=== PATIENT | female | born 1955 | race Caucasian/White ===

== ENCOUNTER 2020-02-11 14:08 | Observation (INO) | payer OTHER ==
--- OUTSIDE RECORDS SUMMARY | 2020-02-11 14:11 | XMS REPORT | Clinical Summary ---
:1955 Author Organization [facility] Address [address] [place] [address] Care Team Providers Name Role Phone Asked, No Pcp Primary Care Provider Unavailable Allergies No Known Allergies Medications Medication Sig Dispensed Refills Start Date End Date Status pregabalin (LYRICA) 75 Take 75 mg by 0 Active MG capsule mouth 2 (two) times a day. prn rosuvastatin (CRESTOR) Take 10 mg by 0 Active 10 MG tablet mouth daily. lisinopril-hydrochlorot Take 1 tablet by 0 Active hiazide mouth daily. (PRINZIDE,ZESTORETIC) 20-25 mg per tablet metFORMIN (GLUCOPHAGE) Take 1,000 mg by 0 Active 1000 MG tablet mouth 2 (two) times a day with meals. apixaban (ELIQUIS) 5 mg Take 5 mg by 0 Active tablet mouth 2 (two) times a day. amIODarone (PACERONE) Take 200 mg by 0 Active 200 MG tablet mouth 2 (two) times a day. metoprolol succinate XL Take 100 mg by 0 Active (TOPROL-XL) 100 MG 24 mouth 2 (two) hr tablet times a day. Active Problems Problem Noted Date Atrial fibrillation 03/27/2016 Hypertension 03/27/2016 Obstructive sleep apnea 03/27/2016 Hyperlipidemia 03/27/2016 Obesity, Class III, BMI 40-49.9 (morbid obesity) 03/27 Family History Medical History Relation Name Comments Heart disease Father Lung cancer Father Breast cancer Mother Heart disease Mother Relation Name Status Comments Father Mother Social History Tobacco Use Types Packs/Day Years Used Date Former Smoker 2 Quit: 03/27/19 79 Alcohol Use Drinks/Week oz/Week Comments No Sex Assigned at Date Recorded Not on file Job Start Date Occupation Industry Not on file Not on file Not on file Travel History Travel Start Travel End No recent travel history available. Last Filed Vital Signs Not on file Plan of Treatment Not on file Results Not on fileafter 02/10/2019 Advance Directives For more information, please contact: [phone] Type Date Recorded Patient Toggle Press Folder And Feeder Explanati on Advance Directives, Living Will and Medical Power of Raw Shellfish Preparer
[2020-02-11 14:57] LABS: Absolute Lymphocytes (CBC) 2.5 K/uL (0.7-4.9); Hematocrit 47.3 % (36.0-45.0); Lymphocytes % 26.3 % (15.3-44.8); MPV 7.6 fL (7.6-11.3); RBC Red Blood Cell Count 5.27 M/uL (3.86-4.86)
--- NOTE | 2020-02-11 15:10 | RAD REPORT ---
EXAM DESCRIPTION: RAD - Chest Single View - 02/11/2020 2:48 pm CLINICAL HISTORY: PALPITATIONS COMPARISON: January 2016 TECHNIQUE: AP portable chest image was obtained 02/11/2020 2:48 pm . FINDINGS: Lung volumes are low. No peripheral mass or consolidation. No significant failure or volum e overload. Lung markings are increased by the low lung volumes. Heart and vasculature are normal. No measurable pleural effusion and no pneumothorax. No acute bony abnormality seen. No acute aortic fin dings suspected. IMPRESSION: No focal lung parenchymal process.
[2020-02-11 15:26] LABS: ALT/SGPT 18 U/L (12-78); AST/SGOT 15 U/L (15-37); Albumin 3.4 g/dL (3.4-5.0); Alkaline Phosphatase 99 U/L (45-117); BUN Blood Urea Nitrogen 11 mg/dL (7-18); Bicarbonate 27 mmol/L (21-32); Bilirubin Direct 0.1 mg/dL (0-0.2); Bilirubin Total 0.4 mg/dL (0.2-1.0); Glucose Level 194 mg/dL (74-106); Magnesium 1.8 mg/dL (1.8-2.4); NT PRO-BNP 1562 pg/mL (<125); Potassium 3.4 mmol/L (3.5-5.1); Protein, Total 7.5 g/dL (6.4-8.2); Sodium Level 138 mmol/L (136-145); Troponin (Emerg Dept Use Only) < 0.02 ng/mL (0.0-0.045)
[2020-02-11] MEDS ORDERED: METOPROLOL TARTRATE 5 MG/5 ML INJ IV ONE ×3 (16:01→18:54)
[2020-02-11] MEDS ORDERED: NA CHLORIDE 0.9% 1,000 ML ONE (16:01)
[2020-02-11] MEDS ORDERED: MAGNESIUM SULFATE 1 gm IVPB 1 GM/100 ML BAG IV ONE (16:20)
[2020-02-11] MEDS ORDERED: POTASSIUM 25 MEQ EFFERV TAB ONE (16:20)
[2020-02-11] MEDS ORDERED: METOPROLOL TAR 50 MG TAB ONE (16:32)
[2020-02-11 16:44] LABS: Urine Blood 1+ (NEG); Urine Glucose NEGATIVE (NEG); Urine Protein NEGATIVE (NEG)
--- NOTE | 2020-02-11 17:09 | ER ---
Nurse's Notes [facility] Name: Sarita Kaur Age: 64 yrs Sex: Female : 1955 Arrival Date: 02/11/2020 Time: 14:09 Bed 8 Private MD: Shira Marie K Diagnosis: Atrial fibrillation and flutter-rvr;Essential (primary) hypertension;Type 2 diabetes mellitus;Hypokalemia Presentation: 02/10 14:28 Chief complaint: Patient states: Missed dose of metoprolol, started having palpitations ll1 and generalized weakness Lester night. Continues today, unable to get in to see MD. Coronavirus screen: Proceed with normal triage. Patient denies a cough. Patient denies shortness of breath or difficulty breathing. Patient denies measured and/or subjective temperature greater than 100.4F prior to today's visit. Patient denies travel on a cruise ship or to a country the [facility] currently lists as an affected area. Patient denies contact with known and/or suspected case of COVID-19. Ebola Screen: Patient denies travel to an Ebola-affected area in the 21 days before illness onset. Initial Sepsis Screen: Does the patient meet any 2 criteria? HR > 90 bpm. No. Patient's initial sepsis screen is negative. Does the patient have a suspected source of infection? No. Patient's initial sepsis screen is negative. Risk Assessment: Do you want to hurt yourself or someone else? Patient reports no desire to harm self or others. Onset of symptoms was February 10, 2020. 14:28 Method Of Arrival: Ambulatory ll1 14:28 Acuity: H[place] 3 ll1 Historical: - Allergies: 14:36 No Known Allergies; ll1 - Home Meds: 18:53 Lyrica 150 mg Oral [Active]; lisinopril-hydrochlorothiazide 20-25 mg oral tab 1 tab jl7 once daily [Active]; rosuvastatin 10 mg oral tab 1 tab once daily [Active]; Eliquis 5 mg oral tab [Active]; omeprazole 20 mg Oral cpDR [Active]; metformin 1,000 mg Oral tab [Active]; metoprolol succinate 100 mg oral Tb24 1 tab once daily [Active]; - PMHx: 14:36 Atrial Fib; ablation; ll1 14:36 Diabetes - NIDDM; Depression; ll1 - PSHx: 14:36 cervical ablation; Cholecystectomy; Appendectomy; Tubal ligation; ll1 - Immunization history:: Adult Immunizations unknown. - Social history:: Smoking status: Patient denies any tobacco usage or history of. Patient/guardian denies using alcohol, street drugs, tobacco products. - Family history:: not pertinent. Screenin:55 Abuse screen: Denies threats or abuse. Denies injuries from another. Nutritional jl7 screening: No deficits noted. Tuberculosis screening: No symptoms or risk factors identified. Fall Risk IV access (20 points). Total Bernabe Fall Scale indicates No Risk (0-24 pts). Assessment: 14:30 General: Appears in no apparent distress. uncomfortable, Behavior is calm, cooperative, jl7 appropriate for age. Pain: Denies pain. Neuro: Level of Consciousness is awake, alert, obeys commands, Oriented to person, place, time, situation. Cardiovascular: Reports palpitations, Patient's skin is warm and dry. Rhythm is atrial fibrillation. Respiratory: Airway is patent Respiratory effort is even, unlabored, Respiratory pattern is regular, symmetrical. Derm: Skin is pink, warm \T\ dry. 15:30 Reassessment: Patient appears in no apparent distress at this time. No changes from jl7 previously documented assessment. Patient and/or family updated on plan of care and expected duration. Pain level reassessed. Patient is alert, oriented x 3, equal unlabored respirations, skin warm/dry/pink. 16:30 Reassessment: Patient appears in no apparent distress at this time. Patient and/or jl7 family updated on plan of care and expected duration. Pain level reassessed. Patient is alert, oriented x 3, equal unlabored respirations, skin warm/dry/pink. 17:30 Reassessment: Patient appears in no apparent distress at this time. No changes from jl7 previously documented assessment. Patient and/or family updated on plan of care and expected duration. Pain level reassessed. Patient is alert, oriented x 3, equal unlabored respirations, skin warm/dry/pink. 18:30 Reassessment: Patient appears in no apparent distress at this time. No changes from jl7 previously documented assessment. Patient and/or family updated on plan of care and expected duration. Pain level reassessed. Patient is alert, oriented x 3, equal unlabored respirations, skin warm/dry/pink. 19:43 Reassessment: Patient appears in no apparent distress at this time. Patient is alert, lp1 oriented x 3, equal unlabored respirations, skin warm/dry/pink. Patient aware of pending admission to floor. Vital Signs: 14:28 BP 156 / 110; Pulse 140; Resp 19; Temp 98.5; Pulse Ox 100% ; Pain 0/10; ll1 14:55 BP 135 / 86; Pulse 124; Resp 19 S; Pulse Ox 96% on R/A; Pain 0/10; jl7 16:00 BP 130 / 106; Pulse 126; Resp 19; Pulse Ox 97% ; jl7 16:30 BP 130 / 107; Pulse 106; Resp 17; Pulse Ox 100% ; jl7 17:24 BP 148 / 116; Pulse 111; Resp 14; Pulse Ox 99% ; jl7 19:43 BP 154 / 107; Pulse 90; Resp 20; Temp 97.3; Pulse Ox 98% on R/A; lp1 19:53 BP 146 / 88; Pulse 89; Resp 20; Pulse Ox 97% on R/A; lp1 ED Course: 14:09 Patient arrived in ED. am2 14:10 Shira Marie MD is Private Physician. am2 14:16 Florin Melvin MD is Attending Physician. julissa 14:28 Demetrius Rene, SUHAIL is Primary Nurse. jl7 14:31 Triage completed. ll1 14:37 Arm band placed on Patient placed in an exam room, on a stretcher. ll1 14:49 XRAY Chest (1 view) In Process Unspecified. EDMS 14:53 Patient has correct armband on for positive identification. Placed in gown. Bed in low mh5 position. Call light in reach. Side rails up X 1. Warm blanket given. night monitor on. Pulse ox on. NIBP on. 14:53 EKG done, by ED staff, reviewed by Florin Melvin MD. 5 14:55 Initial lab(s) drawn, by ok, sent to lab. Inserted saline lock: 20 gauge in right jl7 forearm, using aseptic technique. Blood collected. 15:34 Urine collected: clean catch specimen, clear. 5 17:07 Omero Denson MD is Hospitalizing Provider. julissa 18:50 No provider procedures requiring assistance completed. Patient admitted, IV remains in jl7 place. intact, No redness/swelling at site. Administered Medications: 15:50 Drug: NS 0.9% 1000 ml Route: IV; Rate: 125 ml/hr; Site: right forearm; jl7 19:13 Follow up: Response: No adverse reaction; IV Status: Infusion continued upon admission jl7 15:53 Drug: Lopressor 5 mg Route: IVP; Site: right forearm; jl7 16:00 Follow up: Response: No adverse reaction; Cardiac rhythm is unchanged jl7 15:59 Drug: Lopressor 2.5 mg Route: IVP; Site: right forearm; jl7 16:10 Follow up: Response: No adverse reaction; Cardiac rhythm is unchanged jl7 16:10 Drug: Lopressor 2.5 mg Route: IVP; Site: right forearm; jl7 16:20 Follow up: Response: No adverse reaction; Cardiac rhythm is unchanged jl7 16:10 Drug: NS 0.9% 500 ml Route: IV; Rate: bolus; Site: right forearm; jl7 17:00 Follow up: Response: No adverse reaction; IV Status: Completed infusion; IV Intake: jl7 500ml 16:21 Drug: Potassium Effervescent Tablet 50 mEq Route: PO; jl7 19:15 Follow up: Response: No adverse reaction jl7 16:22 Drug: Magnesium Sulfate 1 grams Route: IVPB; Infused Over: 1 hrs; Site: right forearm; jl7 17:22 Follow up: Response: No adverse reaction; IV Status: Completed infusion jl7 16:29 Drug: Lopressor (metoprolol TARTRATE) 50 mg Route: PO; jl7 19:17 Follow up: Response: No adverse reaction jl7 16:29 Drug: Lopressor 5 mg Route: IVP; Site: right forearm; jl7 16:40 Follow up: Response: No adverse reaction; Cardiac rhythm is unchanged jl7 17:19 Drug: Digoxin 0.5 mg Route: IVP; Site: right forearm; jl7 19:17 Follow up: Response: No adverse reaction jl7 18:50 Drug: Lopressor 5 mg Route: IVP; Site: right forearm; jl7 19:17 Follow up: Response: No adverse reaction 7 19:45 Drug: Lisinopril 20 mg Route: PO; lp1 20:02 Follow up: Response: No adverse reaction lp1 Intake: 17:00 IV: 500ml; Total: 500ml. jl7 Outcome: 17:08 Decision to Hospitalize by Provider. julissa 19:43 Condition: stable lp1 19:43 Instructed on the need for admit. 20:02 Admitted to Med/surg via wheelchair, room 216, with chart, Report called to SUHAIL Levy lp1 20:21 Patient left the ED. jb4 Signatures: Dispatcher [employer] EDFlorin Smith MD MD cha Pena, Laura, RN RN lp1 Mono Cruz RN RN jb4 Marilyn Tejada Demetrius Shepherd RN RN jl7 Sulma Vasquez Lynsay RN RN ll1 Corrections: (The following items were deleted from the chart) 19:16 17:00 Response: No adverse reaction; IV Intake: 500ml jl7 jl7
--- NOTE | 2020-02-11 17:09 | EDPHYS ---
Physician Documentation [facility] Name: Sarita Kaur Age: 64 yrs Sex: Female : 1955 Arrival Date: 02/11/2020 Time: 14:09 Bed 8 Private MD: Shira Marie K ED Physician Florin Melvin HPI: 02/10 15:39 This 64 yrs old Female presents to ER via Ambulatory with complaints of julissa possible afib. 15:39 The patient presents with a history of irregular heart beat, heart racing. Context: The julissa symptoms occur at rest. Onset: The symptoms/episode began/occurred 1 day(s) ago. Duration: The patient or guardian reports a single episode, that is still ongoing. Modifying factors: The symptoms are aggravated by nothing. The symptoms are alleviated by nothing. Associated signs and symptoms: The patient has no apparent associated signs or symptoms. Severity of symptoms: At their worst the symptoms were mild in the emergency department the symptoms are unchanged. The patient has not experienced similar symptoms in the past. Historical: - Allergies: 14:36 No Known Allergies; ll1 - Home Meds: 18:53 Lyrica 150 mg Oral [Active]; lisinopril-hydrochlorothiazide 20-25 mg oral tab 1 tab jl7 once daily [Active]; rosuvastatin 10 mg oral tab 1 tab once daily [Active]; Eliquis 5 mg oral tab [Active]; omeprazole 20 mg Oral cpDR [Active]; metformin 1,000 mg Oral tab [Active]; metoprolol succinate 100 mg oral Tb24 1 tab once daily [Active]; - PMHx: 14:36 Atrial Fib; ablation; ll1 14:36 Diabetes - NIDDM; Depression; ll1 - PSHx: 14:36 cervical ablation; Cholecystectomy; Appendectomy; Tubal ligation; ll1 - Immunization history:: Adult Immunizations unknown. - Social history:: Smoking status: Patient denies any tobacco usage or history of. Patient/guardian denies using alcohol, street drugs, tobacco products. - Family history:: not pertinent. ROS: 15:39 Constitutional: Negative for fever, chills, and weight loss, Eyes: Negative for injury, julissa pain, redness, and discharge, ENT: Negative for injury, pain, and discharge, Neck: Negative for injury, pain, and swelling, Respiratory: Negative for shortness of breath, cough, wheezing, and pleuritic chest pain, Abdomen/GI: Negative for abdominal pain, nausea, vomiting, diarrhea, and constipation, Back: Negative for injury and pain, : Negative for injury, bleeding, discharge, and swelling, MS/Extremity: Negative for injury and deformity, Skin: Negative for injury, rash, and discoloration, Neuro: Negative for headache, weakness, numbness, tingling, and seizure, Psych: Negative for depression, anxiety, suicide ideation, homicidal ideation, and hallucinations, Allergy/Immunology: Negative for hives, rash, and allergies, Endocrine: Negative for neck swelling, polydipsia, polyuria, polyphagia, and marked weight changes, Hematologic/Lymphatic: Negative for swollen nodes, abnormal bleeding, and unusual bruising. 15:39 Cardiovascular: Positive for palpitations. Exam: 15:39 Constitutional: This is a well developed, well nourished patient who is awake, alert, julissa and in no acute distress. Head/Face: Normocephalic, atraumatic. Eyes: Pupils equal round and reactive to light, extra-ocular motions intact. Lids and lashes normal. Conjunctiva and sclera are non-icteric and not injected. Cornea within normal limits. Periorbital areas with no swelling, redness, or edema. ENT: Nares patent. No nasal discharge, no septal abnormalities noted. Tympanic membranes are normal and external auditory canals are clear. Oropharynx with no redness, swelling, or masses, exudates, or evidence of obstruction, uvula midline. Mucous membranes moist. Neck: Trachea midline, no thyromegaly or masses palpated, and no cervical lymphadenopathy. Supple, full range of motion without nuchal rigidity, or vertebral point tenderness. No Meningismus. Chest/axilla: Normal chest wall appearance and motion. Nontender with no deformity. No lesions are appreciated. Respiratory: Lungs have equal breath sounds bilaterally, clear to auscultation and percussion. No rales, rhonchi or wheezes noted. No increased work of breathing, no retractions or nasal flaring. Abdomen/GI: Soft, non-tender, with normal bowel sounds. No distension or tympany. No guarding or rebound. No evidence of tenderness throughout. Back: No spinal tenderness. No costovertebral tenderness. Full range of motion. Female : Normal external genitalia. Skin: Warm, dry with normal turgor. Normal color with no rashes, no lesions, and no evidence of cellulitis. MS/ Extremity: Pulses equal, no cyanosis. Neurovascular intact. Full, normal range of motion. Neuro: Awake and alert, GCS 15, oriented to person, place, time, and situation. Cranial nerves II-XII grossly intact. Motor strength 5/5 in all extremities. Sensory grossly intact. Cerebellar exam normal. Normal gait. Psych: Awake, alert, with orientation to person, place and time. Behavior, mood, and affect are within normal limits. 15:39 Cardiovascular: Rate: tachycardic, Rhythm: irregularly irregular, Pulses: Pulses are 4+ in bilateral radial, brachial, femoral, popliteal, posterior tibial and and dorsalis pedis arteries.. Heart sounds: normal, Edema: is not appreciated, JVD: is not appreciated. 15:42 ECG was reviewed by the Attending Physician. [facility] Vital Signs: 14:28 BP 156 / 110; Pulse 140; Resp 19; Temp 98.5; Pulse Ox 100% ; Pain 0/10; ll1 14:55 BP 135 / 86; Pulse 124; Resp 19 S; Pulse Ox 96% on R/A; Pain 0/10; jl7 16:00 BP 130 / 106; Pulse 126; Resp 19; Pulse Ox 97% ; jl7 16:30 BP 130 / 107; Pulse 106; Resp 17; Pulse Ox 100% ; jl7 17:24 BP 148 / 116; Pulse 111; Resp 14; Pulse Ox 99% ; jl7 19:43 BP 154 / 107; Pulse 90; Resp 20; Temp 97.3; Pulse Ox 98% on R/A; lp1 19:53 BP 146 / 88; Pulse 89; Resp 20; Pulse Ox 97% on R/A; lp1 MDM: 14:16 Patient medically screened. [facility] 15:41 Data reviewed: vital signs, nurses notes, lab test result(s), EKG, radiologic studies, julissa plain films. 17:08 Differential diagnosis: arrythmia, dehydration. Data interpreted: awake overnight monitor: rate julissa is 122 beats/min, rhythm is atrial fibrillation. Test interpretation: by ED physician or midlevel provider: ECG, plain radiologic studies. Counseling: I had a detailed discussion with the patient and/or guardian regarding: the historical points, exam findings, and any diagnostic results supporting the discharge/admit diagnosis, the presence of at least one elevated blood pressure reading (>120/80) during this emergency department visit, lab results, radiology results, the need for further work-up and treatment in the hospital. Physician consultation: Thomas Gill MD and will see patient in the hospital. 17:21 ED course: dr sheehan agrees with plan, will admit to obs, dr gill aware and will julissa consult. 02/10 14:23 Order name: Basic Metabolic Panel; Complete Time: 15:37 [facility] 02/10 14:23 Order name: CBC with Diff; Complete Time: 15:37 [facility] 02/10 14:23 Order name: LFT's; Complete Time: 15:37 [facility] 02/10 14:23 Order name: Magnesium; Complete Time: 15:37 [facility] 02/10 14:23 Order name: NT PRO-BNP; Complete Time: 15:37 [facility] 02/10 14:23 Order name: Troponin (emerg Dept Use Only); Complete Time: 15:37 [facility] 02/10 14:23 Order name: XRAY Chest (1 view); Complete Time: 15:37 [facility] 02/10 14:23 Order name: TSH; Complete Time: 15:37 [facility] 02/10 15:38 Order name: Urine Dipstick--Ancillary (enter results); Complete Time: 17:07 02/10 14:23 Order name: EKG; Complete Time: 14:24 [facility] 02/10 14:23 Order name: Cardiac monitoring; Complete Time: 14:53 [facility] 02/10 14:23 Order name: EKG - Nurse/Tech; Complete Time: 14:53 [facility] 02/10 14:23 Order name: IV Saline Lock; Complete Time: 14:53 [facility] 02/10 14:23 Order name: Labs collected and sent; Complete Time: 14:53 [facility] 02/10 14:23 Order name: O2 Per Protocol; Complete Time: 14:53 [facility] 02/10 14:23 Order name: O2 Sat Monitoring; Complete Time: 14:53 [facility] 02/10 14:23 Order name: Urine Dipstick-Ancillary (obtain specimen); Complete Time: 15:34 [facility] 02/10 17:14 Order name: CONS Physician Consult EDMS EC:42 Rate is 120 beats/min. Rhythm is irregularly irregular. QRS Halma is Normal. IN interval julissa is normal. QRS interval is normal. QT interval is normal. No Q waves. T waves are Normal. No ST changes noted. Clinical impression: Atrial Fibrillation and No evidence of ischemia. Interpreted by me. Reviewed by me. Administered Medications: 15:50 Drug: NS 0.9% 1000 ml Route: IV; Rate: 125 ml/hr; Site: right forearm; jl7 19:13 Follow up: Response: No adverse reaction; IV Status: Infusion continued upon admission jl7 15:53 Drug: Lopressor 5 mg Route: IVP; Site: right forearm; jl7 16:00 Follow up: Response: No adverse reaction; Cardiac rhythm is unchanged jl7 15:59 Drug: Lopressor 2.5 mg Route: IVP; Site: right forearm; jl7 16:10 Follow up: Response: No adverse reaction; Cardiac rhythm is unchanged jl7 16:10 Drug: Lopressor 2.5 mg Route: IVP; Site: right forearm; jl7 16:20 Follow up: Response: No adverse reaction; Cardiac rhythm is unchanged jl7 16:10 Drug: NS 0.9% 500 ml Route: IV; Rate: bolus; Site: right forearm; jl7 17:00 Follow up: Response: No adverse reaction; IV Status: Completed infusion; IV Intake: jl7 500ml 16:21 Drug: Potassium Effervescent Tablet 50 mEq Route: PO; jl7 19:15 Follow up: Response: No adverse reaction jl7 16:22 Drug: Magnesium Sulfate 1 grams Route: IVPB; Infused Over: 1 hrs; Site: right forearm; jl7 17:22 Follow up: Response: No adverse reaction; IV Status: Completed infusion jl7 16:29 Drug: Lopressor (metoprolol TARTRATE) 50 mg Route: PO; jl7 19:17 Follow up: Response: No adverse reaction jl7 16:29 Drug: Lopressor 5 mg Route: IVP; Site: right forearm; jl7 16:40 Follow up: Response: No adverse reaction; Cardiac rhythm is unchanged jl7 17:19 Drug: Digoxin 0.5 mg Route: IVP; Site: right forearm; jl7 19:17 Follow up: Response: No adverse reaction jl7 18:50 Drug: Lopressor 5 mg Route: IVP; Site: right forearm; jl7 19:17 Follow up: Response: No adverse reaction jl7 19:45 Drug: Lisinopril 20 mg Route: PO; lp1 20:02 Follow up: Response: No adverse reaction lp1 Disposition: 02/11/20 17:08 Hospitalization ordered by Omero Sheehan for Observation. Preliminary diagnosis are Atrial fibrillation and flutter - rvr, Essential (primary) hypertension, Type 2 diabetes mellitus, Hypokalemia. - Bed requested for Telemetry/MedSurg (observation). - Status is Observation. jb4 - Condition is Fair. - Problem is new. - Symptoms have improved. Critical care time excluding procedures: 17:08 Critical care time: Bedside Care: 25 minutes, Consultation: 10 minutes. Total time: 35 julissa minutes Signatures: Dispatcher [employer] EDLynsey Pruett RN Florin Mims MD MD cha Pena, Laura RN RN lp1 Mono Cruz RN RN jb4 Demetrius Rene RN SUHAIL jl7 Noemy Spencer RN RN ll1 Corrections: (The following items were deleted from the chart) 17:10 17:08 Hospitalization Ordered by Omero Sheehan MD for Observation. Preliminary diagnosis julissa is Atrial fibrillation and flutter - rvr; Essential (primary) hypertension; Type 2 diabetes mellitus. Bed requested for Telemetry/MedSurg (observation). Status is Observation. Condition is Fair. Problem is new. Symptoms have improved. julissa 17:20 17:10 02/11/2020 17:08 Hospitalization Ordered by Omero Sheehan MD for Observation. julissa Preliminary diagnosis is Atrial fibrillation and flutter - rvr; Essential (primary) hypertension; Type 2 diabetes mellitus; Hyperkalemia. Bed requested for Telemetry/MedSurg (observation). Status is Observation. Condition is Fair. Problem is new. Symptoms have improved. julissa 18:44 17:20 02/11/2020 17:08 Hospitalization Ordered by Omero Sheehan MD for Observation. dw Preliminary diagnosis is Atrial fibrillation and flutter - rvr; Essential (primary) hypertension; Type 2 diabetes mellitus; Hypokalemia. Bed requested for Telemetry/MedSurg (observation). Status is Observation. Condition is Fair. Problem is new. Symptoms have improved. julissa 18:46 18:44 02/11/2020 17:08 Hospitalization Ordered by Omero Sheehan MD for Observation. dw Preliminary diagnosis is Atrial fibrillation and flutter - rvr; Essential (primary) hypertension; Type 2 diabetes mellitus; Hypokalemia. Bed requested for Telemetry/MedSurg (observation). Status is Observation. Condition is Fair. Problem is new. Symptoms have improved. dw 20:21 18:46 02/11/2020 17:08 Hospitalization Ordered by Omeor Sheehan MD for Observation. jb4 Preliminary diagnosis is Atrial fibrillation and flutter - rvr; Essential (primary) hypertension; Type 2 diabetes mellitus; Hypokalemia. Bed requested for Telemetry/MedSurg (observation). Status is Observation. Condition is Fair. Problem is new. Symptoms have improved. dw
[2020-02-11] MEDS ORDERED: DIGOXIN 0.25 MG/ML AMP ONE (17:22)
[2020-02-11] MEDS ORDERED: lisinopriL 20 MG TAB ONE (19:52)
[2020-02-11] MEDS ORDERED: ONDANSETRON 4 MG/2 ML VIAL IV PRN (20:49)
[2020-02-11] MEDS ORDERED: ACETAMINOPHEN 500 MG TAB PO PRN (20:49)
[2020-02-11] MEDS ORDERED: GLUCAGON 1 MG/VIAL IM PRN (20:49)
[2020-02-11] MEDS ORDERED: MORPHINE 4 MG/ML SYR IV PRN (20:49)
[2020-02-11] MEDS ORDERED: D50W 25 GM/50 ML SYRINGE/VIAL IV PRN (20:49)
[2020-02-11] MEDS: INSULIN -REGULAR HUMAN 50 UNIT/0.5 ML ML SQ SCH (21:00)
[2020-02-11] MEDS ORDERED: METOPROLOL TAR 50 MG TAB PO SCH (21:00)
[2020-02-11 21:09] VITALS: BMI 44.6
[2020-02-11] MEDS: POTASSIUM 25 MEQ EFFERV TAB PO SCH (22:13)
[2020-02-11] MEDS: DIGOXIN 0.25 MG/ML AMP IV SCH (22:15)
[2020-02-11] MEDS ORDERED: ACETAMINOPHEN 325 MG TABLET PO PRN (23:00)
[2020-02-12] MEDS: DIGOXIN 0.25 MG/ML AMP IV SCH (02:49)
[2020-02-12 04:27] LABS: Absolute Lymphocytes (CBC) 2.9 K/uL (0.7-4.9); Basophils % 0.6 % (0-1.3); Lymphocytes % 28.8 % (15.3-44.8); MPV 7.8 fL (7.6-11.3); RBC Red Blood Cell Count 4.84 M/uL (3.86-4.86)
[2020-02-12 04:42] LABS: Potassium 4.3 mmol/L (3.5-5.1)
[2020-02-12 04:44] VITALS: TEMP 97.5; O2SAT 99
[2020-02-12] MEDS: INSULIN -REGULAR HUMAN 50 UNIT/0.5 ML ML SQ SCH (07:30)
--- NOTE | 2020-02-12 08:40 | EKG ---
Test Date: 2020-02-11 Test Time: 14:39:47 Dry Ice Maker: KIESHA MEASUREMENT RESULTS: Intervals: Rate: 120 NH: QRSD: 86 QT: 342 QTc: 483 [place]: P: NH: QRS: 62 T: 34 INTERPRETIVE STATEMENTS: Atrial flutter with variable AV block Low voltage QRS Nonspecific ST and T wave abnormality Abnormal ECG Compared to ECG 02/13/2016 08:06:38 Low QRS voltage now present ST (T wave) deviation still present Electronically Signed On 02-12-20 08:39:07 CDT by Thomas Gill
[2020-02-12] MEDS: POTASSIUM 25 MEQ EFFERV TAB PO SCH (08:41)
[2020-02-12 08:43] VITALS: BP 136/90
[2020-02-12] MEDS ORDERED: LISINOPRIL PO SCH (09:00)
[2020-02-12] MEDS ORDERED: HOME MED 1 EA UNK (Apixaban [Eliquis] 5 MG) PO SCH (09:00)
[2020-02-12] MEDS ORDERED: ROSUVASTATIN 10 MG PO SCH (09:00)
[2020-02-12] MEDS ORDERED: DIGOXIN 0.25 MG TABLET PO SCH (09:00)
[2020-02-12] MEDS ORDERED: lisinopriL 20 MG TAB PO SCH (09:00)
[2020-02-12] MEDS ORDERED: HYDROCHLOROTHIAZIDE PO SCH (09:00)
--- NOTE | 2020-02-12 09:37 | P.SSS ---
Patient History Date of Service: 02/12/20 Reason for admission: PALPITATIONS History of Present Illness: MS. MASCORRO IS A DIABETIC WHO IS VERY WELL CONTROLLED FOR A FIB. SHE WAS NOT SURE IF SHE FORGOT METOPROLOL ON THURSDAY AND DID NOT TAKE IT. SHE WENT INTO A FIB THAT NIGHT AND CAME TO ER ON THURSDAY. SHE IS NOW BACK IN [place]. Allergies No Known Allergies Allergy (Verified 02/11/20 21:09) Home Medications: Apixaban [Eliquis] 5 mg PO BID 02/11/20 Lisinopril/Hydrochlorothiazide [Lisinopril-Hctz 20-25 mg Tab] 1 tab PO DAILY 02/11/20 Metformin ER [Glucophage ER*] 1,000 mg PO BID 02/11/20 Metoprolol Succinate [Toprol Xl] 100 [place] PO 62902/11/20 Omeprazole 20 [place] [address]02/11/20 Pregabalin [Lyrica] 150 mg PO BEDTIME 02/11/20 Rosuvastatin [Crestor*] 10 mg PO DAILY 02/11/20 - Past Medical/Surgical History Has patient received pneumonia vaccine in the past: No Diabetic: Yes -: HTN -: Afib -: diabetes -: high cholesterol -: neuropathy -: appendectomy -: cholecystectomy -: bilateral knee Sx -: cyst removed out of R hand -: cervical oblation - Family History Mother -: Heart disease, Hypertension Notes: Afib - Social History Smoking Status: Never smoker Alcohol use: No CD- Drugs: No Caffeine use: Yes Place of Residence: Home Review of Systems 10-point ROS is otherwise unremarkable Physical Examination - Vital Signs Temperature: 97.5 F Blood Pressure: 136/90 Pulse: 71 Respirations: 18 Pulse Ox (%): 99 - Physical Exam General: Alert, In no apparent distress HEENT: Atraumatic, PERRLA, Mucous membr. moist/pink, EOMI, Sclerae nonicteric Neck: Supple, 2+ carotid pulse no bruit, No LAD, Without JVD or thyroid abnormality Respiratory: Clear to auscultation bilaterally, Normal air movement Cardiovascular: Regular rate/rhythm, Normal S1 S2 Gastrointestinal: Normal bowel sounds, No tenderness Musculoskeletal: No tenderness Integumentary: No rashes Neurological: Normal gait, Normal speech, Normal strength at 5/5 x4 extr, Normal tone, Normal affect Lymphatics: No axilla or inguinal lymphadenopathy - Studies Laboratory Data (last 24 hrs) 02/11/20 14:51: WBC 9.4, Hgb 15.7 H, Hct 47.3 H, Plt Count 241 02/11/20 14:51: Sodium 138, Potassium 3.4 L, BUN 11, Creatinine 0.88, Glucose 194 H, Magnesium 1.8, Total Bilirubin 0.4, AST 15, ALT 18, Alkaline Phosphatase 99 - Diagnosis (Problem(s)) (1) Atrial fibrillation Onset Date: 01/10/16 Current Visit: No Status: Chronic Plan: SHE NOW KNOWS THAT IF SHE IS NOT SURE AND IF BP IS MORE THAN 120 SYSTOLIC SHE CAN TAKE HALF OF METOPROLOL. IF SHE FORGOT AND KNEW ABOUT IT SHE CAN TAKE FULL METOPRLOL. SHE HAD THIS SHE MISSED HER DOSE OF METOPROLOL. Qualifiers: Atrial fibrillation type: paroxysmal Qualified Code(s): I48.0 - Paroxysmal atrial fibrillation - Disposition Disposition: ROUTINE DISCHARGE Condition: FAIR
--- NOTE | 2020-02-12 16:41 | CON ---
Date of Consultation: 02/12/[address] Denson on 02/11/2020. I saw the patient on 02/12/2020. Reason For Consultation: Atrial fibrillation. History Of Present Illness: Ms. Kaur is a 64-year-old white woman. She is known to have atrial fibrillation. She had an ablation by Dr. Camargo at [facility] 7 years ago. She has a history of depression, diabetes, hypertension, dyslipidemia, neuropathy, and gastroesophageal reflux disease. Apparently yesterday, she missed 1 of her beta-chavez dose, which is 100 mg of metoprolol and came in with rapid ventricular response, atrial fibrillation. She was given IV beta blockers x2. She wa s given metoprolol p.o. and digoxin, and overnight, she converted back to sinus rhythm. She did have palpitations and some chest pain with her atrial fibrillation, but denied any PND, orthopnea, pedal edema, or syncope. Had denied any fever or chills or cough. Past Medical History: As stated above. Allergies: NONE. Review of Systems: Negative. Social History: Negative. Family History: Negative. Medications: At home include metoprolol 100 mg daily, Eliquis, lisinopril with hydrochlorothiazide, metformin, omeprazole, Lyrica, and Crestor. Physical Examination: Vital Signs: Stable. She was in sinus rhythm this morning. Afebrile. HEENT: Negative. Neck: Supple without any bruit, lymphadenopathy, JVD, or thyromegaly. Chest: Clear to auscultation and percussion. Cardiac: Revealed irregular rhythm and rate. No murmurs, gallops, or rubs. Abdomen: Benign. Extremities: Revealed no clubbing, cyanosis, or edema. Diagnostic Data: Chest x-ray is negative. Initial EKG was AFib with rapid ventricular response. He r glucose was 194. Her BNP was 1562. Impression And Plan: Paroxysmal atrial fibrillation, resolved on beta-blockers. We will continue he r beta-chavez. Continue Eliquis. Have her take an extra beta-chavez as needed. If her symptoms k eep recurring, we will consider another ablation. She has an appointment coming up with me in the ne ar future. I will check on her records and see when the last time she had any cardiac workup such as echocardiogram or stress test. She did have some chest pain with her atrial fibrillation. Her othe r problems include diabetes that is fairly well controlled. Her BNP elevation is secondary to atrial fibrillation. Her hypertension, dyslipidemia, gastroesophageal reflux disease, depression, and neur opathy are stable and well controlled. We will continue her present regimen. She can go home today. I will see her in the office in the near future. The case was discussed with Dr. Denson. ADOLFO/NICK Voice ID: [id number] Report ID: [id number]
[2020-02-12] MEDS ORDERED: PREGABALIN 150 MG PO SCH (21:00)
[2020-02-13] MEDS ORDERED: HOME MED 1 EA UNK (Omeprazole [Omeprazole] 20 MG) PO SCH (06:30)
[2020-02-13] MEDS ORDERED: HOME MED 1 EA UNK (Metoprolol Succinate [Toprol Xl] 100 MG) PO SCH (06:30)
== END 2020-02-12 10:42 | disposition home or self-care (01) ==
LOC: ER 14:08 → ERHOLD 17:11 → 2ND 20:02
PROVIDERS: ADMIT Internal Medicine; ATTEND Internal Medicine
DX: I48.0 Paroxysmal atrial fibrillation (principal); I10 Essential (primary) hypertension; E11.9 Type 2 diabetes mellitus without complications; E78.00 Pure hypercholesterolemia, unspecified; E78.5 Hyperlipidemia, unspecified; G62.9 Polyneuropathy, unspecified; K21.9 Gastro-esophageal reflux disease without esophagitis; F32.9 Major depressive disorder, single episode, unspecified; Z90.49 Acquired absence of other specified parts of digestive tract; Z82.49 Family history of ischemic heart disease and other diseases of the circulatory system
CPT/HCPCS: 96365; 96361; 93005; 85025 ×2; 80048 ×2; 36415; 83735; 82947 ×2; 80076; 84443; 81003; 84484 ×3; 83880; 71045; 96375; 99285; J1160 ×2; J3475; J7030; G0378 ×3

== ENCOUNTER 2022-11-26 10:09 | Emergency (ER) | payer BC, OTHER ==
--- OUTSIDE RECORDS SUMMARY | 2022-11-26 10:12 | XMS REPORT | Continuity of Care Document ---
:1955 Author Organization [facility] t Address [address] [place] [address] Care Team Providers Name Role Phone DUY MARVIN Primary Care Physician Unavailable Duy Marvin Attending Clinician Unavailable JOSE J HERNANDEZ Attending Clinician Unavailable JOSE J HERNANDEZ Attending Clinician Unavailable Jose J Hernandez DO Attending Clinician Payers Payer Name Policy Type Policy Number Effective Date Expiration Date Pramod dick [facility] - [id number] 2021 00:00:00 OUT OF STATE Problems Condition Condition Condition Status Onset Resolution Last Treating Co mments Source Name Details Category Date Date Treatment Clinician Date Atrial Atrial Disease Active Methodi fibrillati fibrillati 03-27 on on 00:00: Hospita 00 l Hypertensi Hypertensi Disease Active M ethodi on on 03-27 00:00: Hospita 00 l Obstructiv Obstructiv Disease Active M ethodi e sleep e sleep 03-27 apnea apnea 00:00: Hospita 00 l Hyperlipid Hyperlipid Disease Active M ethodi emia emia 03-27 00:00: Hospita 00 l Obesity, Obesity, Disease Active Metho di Class III, Class III, 03-27 BMI BMI 00:00: Hospita 40-49.9 40-49.9 00 l (morbid (morbid obesity) obesity) No known No known Disease Unive rs active active ity of problems problems [facility] Allergies, Adverse Reactions, Alerts Allergy Allergy Status Severity Reaction(s) Onset Inactive Treating Comm ents Source Name Type Date Date Clinician NO KNOWN Drug Active Univers ALLERGIE Class ity of [facility] [place] [facility] Family History Family Member Diagnosis Comments Start Date Stop Date Source Natural father Heart disease [facility] Natural father Lung cancer [facility] Natural mother Breast cancer [facility] Natural mother Heart disease [facility] Social History Social Habit Start Date Stop Date Quantity Comments Source Exposure to 2022-06-03 2022-06-13 Not sure [facility] SARS-CoV-2 00:00:00 10:10:00 [facility] (event) Branch Alcohol intake 2016-03-28 2016-03-28 Current [facility] 00:00:00 00:00:00 non-drinker of alcohol (finding) History of 1977-03-27 Current smoker [facility] tobacco use 00:00:00 [birth year] [facility] 00:00:00 00:00:00 Smoking Status Start Date Stop Date Source Tobacco smoking [facility] xa consumption unknown [facility] Ex-smoker 2016-03-27 00:00:00 2016-03-27 [facility] 00:00:00 Medications Ordered Filled Start Stop Current Ordering Indication Dosage Frequency Signature Comments Components Source Medication Medication Date Date Medication? Clinician (SIG) Name Name pregabalin Yes 100mg Take 100 Un irene 100 mg 9-09 mg by ity of capsule 11:01: mouth in [place] [address] the Medical morning. Branch lisinopriL- Yes 1{tbl} Take 1 Un irene hydrochloro 9-09 tablet by ity of thiazide 11:01: mouth in [place] 20-25 mg 33 the Medical per tablet morning. [facility] rosuvastati Yes 10mg Take 10 mg Univers n 10 mg 9-09 by mouth ity of tablet 11:01: at [place] [address] bedtime. Medical Branch rivaroxaban Yes 20mg Take 20 mg Univers 20 mg 9-09 by mouth ity of tablet 11:01: in the [place] [address] morning. Medical Branch omeprazole Yes 20mg Take 20 mg U nivers 20 mg 9-09 by mouth ity of capsule 11:01: in the [place] [address] morning. Medical Branch metFORMIN 2022-0 Yes 1000mg Take 1,000 Univers 1,000 mg 9-09 mg by ity of tablet 11:01: mouth in [place] [address] the Medical morning Branch and 1,000 mg in the evening. Take with meals. metoprolol 2021-0 Yes 100mg Take 100 Un irene succinate 9-09 mg by ity of XL 100 mg 11:01: [facility] 33 the Medical tablet morning. Branch pregabalin 2021-0 Yes 100mg Take 100 Un irene 100 mg 9-09 mg by ity of capsule 11:01: mouth in [place] [address] the Medical morning. Branch lisinopriL- Yes 1{tbl} Take 1 Un irene hydrochloro 9-09 tablet by ity of thiazide 11:01: mouth in [place] 20-25 mg 33 the Medical per tablet morning. Bran h rosuvastati Yes 10mg Take 10 mg Univers n 10 mg 9-09 by mouth ity of tablet 11:01: at [place] [address] bedtime. Medical Branch rivaroxaban 2021-0 Yes 20mg Take 20 mg Univers 20 mg 9-09 by mouth ity of tablet 11:01: in the [place] [address] morning. Medical Branch omeprazole 2021-0 Yes 20mg Take 20 mg U nivers 20 mg 9-09 by mouth ity of capsule 11:01: in the [place] [address] morning. Medical Branch metFORMIN 2021-0 Yes 1000mg Take 1,000 Univers 1,000 mg 9-09 mg by ity of tablet 11:01: mouth in [place] [address] the Medical morning Branch and 1,000 mg in the evening. Take with meals. metoprolol 2021-0 Yes 100mg Take 100 Un irene succinate 9-09 mg by ity of XL 100 mg 11:01: mouth in [facility] 24 hr 33 the Medical tablet morning. Branch pregabalin Yes 75mg Q.5D Take 75 mg M ethodi (LYRICA) 75 6-[address] MG capsule 11:17: (two) Hospit a 30 times a l day. prn rosuvastati Yes 10mg QD Take 10 mg Methodi n (CRESTOR) 6-[address] 10 MG 11:17: daily. Hospita tablet 30 l lisinopril- Yes 1{tbl} QD Take 1 Me thodi hydrochloro 6-[address] thiazide 11:17: mouth Hospita (PRINZIDE,Z 30 daily. l ESTORETIC) 20-25 mg per tablet metFORMIN 2015-0 Yes 1000mg Q.5D Take 1,000 Methodi (GLUCOPHAGE 6-[address] ) 1000 MG 11:17: mouth 2 Hospi ta tablet 30 (two) l times a day with meals. apixaban Yes 5mg Q.5D Take 5 mg Meth kennedy (ELIQUIS) 5 6-[address] mg tablet 11:17: (two) Hospita 30 times a l day. amIODarone Yes 200mg Q.5D Take 200 Me thodi (PACERONE) 6-[address] 200 MG 11:17: mouth 2 Hospita tablet 30 (two) l times a day. metoprolol Yes 100mg Q.5D Take 100 Me thodi succinate 6-[address] XL 11:17: mouth 2 Hospita (TOPROL-XL) 30 (two) l 100 MG 24 times a hr tablet day. Vital Signs Vital Name Observation Time Observation Value Comments Source Systolic blood 2022-06-13 15:54:00 119 mm[Hg] [facility] Souther sity pressure [facility] Diastolic blood 2022-06-13 15:54:00 70 mm[Hg] [facility] Heart rate 2022-06-13 15:54:00 64 /min [facility] Body temperature 2022-06-13 15:54:00 36.83 [facility] Respiratory rate 2022-06-13 15:54:00 18 /min [facility] Body height 2022-06-13 15:54:00 160 cm [facility] Body weight 2022-06-13 15:54:00 113.535 kg [facility] BMI 2022-06-13 15:54:00 44.34 kg/m2 [facility] Oxygen saturation in 2022-06-13 15:54:00 95 /min [facility] blood by [facility] Pulse oximetry Branch Procedures This patient has no known procedures. Encounters Start End Encounter Admission Attending Care Care Encounter Source Date/Time Date/Time Type Type Clinicians Facility Department ID 2022-09-18 Outpatient Marvin, STGABI [facility] [id number] Common 15:17:02 Duy [facility] 2022-06-02 Outpatient Marvin, [facility] [id number] Common 10:38:02 Duy [facility] 2022-04-28 Outpatient Marvin, [facility] [id number] Common 13:37:01 Duy [facility] 2022-04-10 Outpatient Marvin, [facility] [id number] Common 13:52:02 Duy [facility] 2022-03-21 Outpatient Marvin, [facility]GABI [facility] [id number] Common 13:05:01 Duy [facility] 2022-10-13 2022-10-13 Outpatient JOSE J [facility]ALY [facility] 10 [id number] Univers 11:00:00 11:00:00 JOSE J HERNANDEZ i ty of [facility] 2022-06-13 2022-06-13 Office Ning [facility] [id number] Univers 10:30:00 11:20:51 Visit Jose J LION [id number] i ty [facility] [id number] Guillermo serrano PROFESSIO [id number] [address] 2022-06-13 2022-06-13 Outpatient JOSE J HEALY [facility] 10 [id number] Univers 10:30:00 11:20:51 JOSE J HERNANDEZ i ty of [facility] 2022-06-13 2022-06-13 Outpatient JOSE J HEALY [facility] [id number] [facility] 10:30:00 11:20:51 JOSE J HERNANDEZ i ty of [facility] Results This patient has no known results.
--- NOTE | 2022-11-26 11:14 | RAD REPORT ---
EXAM DESCRIPTION: CT - Spine Lumbar Wo Con - 11/26/2022 11:06 am CLINICAL HISTORY: Radiculopathy. PAIN COMPARISON: No comparisons TECHNIQUE: Axial noncontrast CT imaging of the lumbar spine was performed with coronal and sagittal re-formatted images. All CT scans are performed using dose optimization technique as appropriate and may include automated exposure control or mA/KV adjustment according to patient size. FINDINGS: No acute lumbar spine fracture seen. Facet degenerative changes are present at L3-4, L4-5, and L5-S1. No high-grade central spinal stenosis identified. Mild bilateral neural foraminal narrowi ng noted at L4-5 and L5-S1. Paraspinal tissues are normal in thickness. No paraspinal abscess or hematoma seen. Atherosclerosis. Cholecystectomy. Intervertebral disc disease assessment is inherently limited by CT. Within these limitations, no high -grade canal stenosis suspected. IMPRESSION: No acute fracture lumbar spine. Mild degenerative disc disease. Consider MRI follow-up for assessment of disc disease if clinically desired.
--- NOTE | 2022-11-26 11:23 | RAD REPORT ---
EXAM DESCRIPTION: RAD - Elbow Left 3 View - 11/26/2022 11:05 am CLINICAL HISTORY: PAIN COMPARISON: No comparisons FINDINGS/IMPRESSION: No acute fracture. No malalignment. No significant focal degenerative changes.
--- NOTE | 2022-11-26 11:25 | RAD REPORT ---
EXAM DESCRIPTION: RAD - Hip Left 2 View - 11/26/2022 11:05 am CLINICAL HISTORY: PAIN COMPARISON: No comparisons FINDINGS/IMPRESSION: Cortical disruption at the medial superior aspect of the left pubic symphysis c ould represent a nondisplaced fracture. No left proximal femur fracture seen. No dislocation.
--- NOTE | 2022-11-26 11:25 | RAD REPORT ---
EXAM DESCRIPTION: RAD - Pelvis - 11/26/2022 11:05 am CLINICAL HISTORY: PAIN COMPARISON: Hip Left 2 View dated 11/26/2022 FINDINGS/IMPRESSION: Possible nondisplaced fracture of the left pubic symphysis and left inferior pu bic ramus. No other fractures appreciated.
--- NOTE | 2022-11-26 12:04 | ER ---
Nurse's Notes [facility] Name: Sarita Kaur Age: 67 yrs Sex: Female : 1955 Arrival Date: 11/26/2022 Time: 10:11 Bed 18 Private MD: Diagnosis: Fracture of other parts of pelvis-nondisplaced fracture left pubic symphysisand left inferior pubic ramus;Fall on same level, unspecified;Contusion of left elbow;Low back pain Presentation: 11/26 10:18 Chief complaint: Patient states: EMS was called to [facility] for fall. Patient sg5 states had a mechanical fall, tripped over yellow floor barrier landing on left side of body. no LOC. Patient complains of pain 5 out of 10 to left leg and hip. Coronavirus screen: Vaccine status: Patient reports receiving the 2nd dose of the covid vaccine. Client denies travel out of the [place] in the last 14 days. At this time, the client does not indicate any symptoms associated with coronavirus-19. Ebola Screen: No symptoms or risks identified at this time. Initial Sepsis Screen: Does the patient meet any 2 criteria? No. Patient's initial sepsis screen is negative. Does the patient have a suspected source of infection? No. Patient's initial sepsis screen is negative. Risk Assessment: Do you want to hurt yourself or someone else? Patient reports no desire to harm self or others. Onset of symptoms was November 26, 2022. 10:18 Method Of Arrival: EMS: [facility] sg5 10:18 Acuity: [place] 3 sg5 10:20 Care prior to arrival: None. Mechanism of Injury: Fall from standing position. Trauma ph event details: Injury occurred in the [facility], Injury occurred: in a public building. Injury occurred: November 26, 2022. Triage Assessment: 10:23 General: Appears uncomfortable, obese, Behavior is calm, cooperative, appropriate for sg5 age. Pain: Complains of pain in left hip and left leg Pain currently is 5 out of 10 on a pain scale. Cardiovascular: Capillary refill < 3 seconds Rhythm is regular. Respiratory: No deficits noted. Airway is patent. Trauma Activation: Not Applicable Physician: ED Physician; Name: ; Notified At: ; Arrived At: Physician: General Surgeon; Name: ; Notified At: ; Arrived At: Physician: Radiology; Name: ; Notified At: ; Arrived At: Physician: Respiratory; Name: ; Notified At: ; Arrived At: Physician: Lab; Name: ; Notified At: ; Arrived At: Historical: - Allergies: : No Known Allergies; sg5 - Home Meds: : Eliquis 5 mg Oral tab [Active]; lisinopril-hydrochlorothiazide 20-25 mg Oral tab 1 tab sg5 once daily [Active]; Lyrica 150 mg Oral [Active]; metformin 1,000 mg Oral tab [Active]; metoprolol succinate 100 mg Oral Tb24 1 tab once daily [Active]; omeprazole 20 mg Oral cpDR [Active]; rosuvastatin 10 mg Oral tab 1 tab once daily [Active]; - PMHx: : Ablation; Atrial Fib; Depression; Diabetes - NIDDM; sg5 - Immunization history:: Adult Immunizations up to date, Client reports receiving the 2nd dose of the Covid vaccine, Last tetanus immunization: unknown, Flu vaccine is up to date. - Social history:: Smoking status: Patient denies any tobacco usage or history of. - Family history:: not pertinent. Screenin:[facility] ED Fall Risk Assessment (Adult) History of falling in the last 3 months, ph including since admission Yes- single mechanical fall (1 pt) Confusion or Disorientation No (0 pts) Intoxicated or Sedated No (0 pts) Impaired Gait Yes (1 pt) Mobility Assist Device Used Yes (1 pt) Altered Elimination No (0 pt) Score/Fall Risk Level 3 or more points = High Risk Oriented to surroundings, Maintained a safe environment, Hourly rounding (assess needs \T\ fall precautionary measures) done. Abuse screen: Denies threats or abuse. Denies injuries from another. Nutritional screening: No deficits noted. Tuberculosis screening: No symptoms or risk factors identified. Primary Survey: 10:30 NO uncontrolled hemorrhage observed. A: The client is awake and alert. The airway is ph patent. Breathing/Chest: Spontaneous respiratory effort, equal unlabored respirations, breath sounds clear bilaterally, regular pattern, symmetrical chest rise and fall. Circulation: No external hemorrhage present. Regular and strong central pulse, skin warm/dry/normal color. Disability Pupils are equal, round, reactive to light and accommodation. Exposure/Environment: There is no evidence of uncontrolled external bleeding. No obvious injuries are noted at this time. A warming method has been applied: A warm blanket has been provided to the patient. 12:34 Reassessment Alertness and Airway: Awake and alert. The airway is patent. Breathing: ph Spontaneous respiratory effort, equal unlabored respirations, breath sounds clear bilaterally, regular pattern with symmetrical chest rise and fall. Circulation: No external hemorrhage noted. Regular and strong central pulse, skin warm/dry/normal color. Disability: Pupils Pupils are equal, round, reactive to light and accomodation. Assessment: 10:30 General: Appears in no apparent distress. Behavior is calm, cooperative, appropriate ph for age. Pain: Complains of pain in left inguinal area and left hip and left femoral area. Neuro: Level of Consciousness is awake, alert, obeys commands, Oriented to person, place, time, situation. Cardiovascular: Capillary refill < 3 seconds in bilateral fingers Patient's skin is warm and dry. Respiratory: Airway is patent Respiratory effort is even, unlabored. Derm: Skin is healthy with good turgor, Skin is pink, warm \T\ dry. Musculoskeletal: Circulation, motion, and sensation intact. Injury Description: Abrasion sustained to left elbow. 12:36 Reassessment: Patient appears in no apparent distress at this time. Patient and/or ph family updated on plan of care and expected duration. Pain level reassessed. Patient is alert, oriented x 3, equal unlabored respirations, skin warm/dry/pink. Physical therapist at bedside to assist pt. Vital Signs: 10:18 BP 157 / 81; Pulse 71; Resp 18; Temp 98.2; Pulse Ox 100% on R/A; Weight 109.32 kg; sg5 Height 5 ft. 4 in. (162.56 cm); Pain 5/10; 11:30 BP 142 / 58; Pulse 68; Resp 18; Temp 98.; Pulse Ox 99% on R/A; ph 12:30 BP 153 / 64; Pulse 68; Resp 18; Pulse Ox 99% on R/A; ph 10:18 Body Mass Index 41.37 (109.32 kg, 162.56 cm) sg5 [place]field Coma Score: 10:30 Eye Response: spontaneous(4). Verbal Response: oriented(5). Motor Response: obeys ph commands(6). Total: 15. 11:30 Eye Response: spontaneous(4). Verbal Response: oriented(5). Motor Response: obeys ph commands(6). Total: 15. 12:30 Eye Response: spontaneous(4). Verbal Response: oriented(5). Motor Response: obeys ph commands(6). Total: 15. Trauma Score (Adult): 10:30 Eye Response: spontaneous(1); Verbal Response: oriented(1); Motor Response: obeys ph commands(2); Systolic BP: > 89 mm Hg(4); Respiratory Rate: 10 to 29 per min(4); Vick Score: 15; Trauma Score: 12 11:30 Eye Response: spontaneous(1); Verbal Response: oriented(1); Motor Response: obeys ph commands(2); Systolic BP: > 89 mm Hg(4); Respiratory Rate: 10 to 29 per min(4); [place]field Score: 15; Trauma Score: 12 12:30 Eye Response: spontaneous(1); Verbal Response: oriented(1); Motor Response: obeys ph commands(2); Systolic BP: > 89 mm Hg(4); Respiratory Rate: 10 to 29 per min(4); Vick Score: 15; Trauma Score: 12 ED Course: 10:11 Patient arrived in ED. ph 10:13 Florin Melvin MD is Attending Physician. julissa 10:23 Triage completed. sg5 10:23 Arm band placed on right wrist. sg5 10:42 Rayne Castañeda, SUHAIL is Primary Nurse. ph 11:58 Sami Antonio MD is Referral Physician. julissa 12:35 Patient has correct armband on for positive identification. Bed in low position. Call ph light in reach. Side rails up X 1. Pulse ox on. NIBP on. Door closed. Noise minimized. Warm blanket given. 12:35 Patient maintains SpO2 saturation greater than 95% on room air. Thermoregulation: warm ph blanket given to patient. 12:35 No provider procedures requiring assistance completed. Patient did not have IV access ph during this emergency room visit. Administered Medications: 12:25 Not Given (Other Intervention Used): Tylenol 650 mg PO once ph 12:25 Drug: HYDROcodone-acetaminophen 5 mg-325 mg 2 tabs Route: PO; ph 12:38 Follow up: Response: (VIS) Vaccine information sheet provided today. Questions and/or ph concerns addressed. VIS edition date: May 10, 2021.; No adverse reaction 12:25 Drug: Ketorolac 60 mg Route: IM; Site: right deltoid; ph 12:38 Follow up: Response: No adverse reaction ph Medication: 12:35 VIS not applicable for this client. ph Intake: 10:30 PO: 0ml; Total: 0ml. ph Output: 10:30 Urine: 0ml; Total: 0ml. ph Outcome: 12:03 Discharge ordered by . julissa 12:36 Discharged to home with family. ph 12:36 Condition: good 12:36 Discharge instructions given to patient, Instructed on discharge instructions, follow up and referral plans. medication usage, Demonstrated understanding of instructions, follow-up care, medications, Prescriptions given X 2. 12:55 Patient left the ED. ss Signatures: Florin Melvin MD MD cha Smirch, Shelby RN RN ss Rayne Castañeda RN RN Lor Miller RN RN sg5
--- NOTE | 2022-11-26 12:04 | EDPHYS ---
Physician Documentation [facility] Name: Sarita Kaur Age: 67 yrs Sex: Female : 1955 Arrival Date: 11/26/2022 Time: 10:11 Bed 18 Private MD: MAGALY Physician Florin eMlvin HPI: 11/26 11:51 This 67 yrs old Female presents to ER via EMS with complaints of Fall Injury. julissa 11:51 Details of fall: The patient fell from an upright position, while walking. Onset: The julissa symptoms/episode began/occurred just prior to arrival, this morning. Associated injuries: The patient sustained left femoral area and left hip, decreased range of motion. Historical: - Allergies: 10:23 No Known Allergies; sg5 - Home Meds: 10:23 Eliquis 5 mg Oral tab [Active]; lisinopril-hydrochlorothiazide 20-25 mg Oral tab 1 tab sg5 once daily [Active]; Lyrica 150 mg Oral [Active]; metformin 1,000 mg Oral tab [Active]; metoprolol succinate 100 mg Oral Tb24 1 tab once daily [Active]; omeprazole 20 mg Oral cpDR [Active]; rosuvastatin 10 mg Oral tab 1 tab once daily [Active]; - PMHx: 10:23 Ablation; Atrial Fib; Depression; Diabetes - NIDDM; sg5 - Immunization history:: Adult Immunizations up to date, Client reports receiving the 2nd dose of the Covid vaccine, Last tetanus immunization: unknown, Flu vaccine is up to date. - Social history:: Smoking status: Patient denies any tobacco usage or history of. - Family history:: not pertinent. ROS: 11:51 Constitutional: Negative for fever, chills, and weight loss, Eyes: Negative for injury, julissa pain, redness, and discharge, ENT: Negative for injury, pain, and discharge, Neck: Negative for injury, pain, and swelling, Cardiovascular: Negative for chest pain, palpitations, and edema, Respiratory: Negative for shortness of breath, cough, wheezing, and pleuritic chest pain, Abdomen/GI: Negative for abdominal pain, nausea, vomiting, diarrhea, and constipation, Back: Negative for injury and pain, : Negative for injury, bleeding, discharge, and swelling, Skin: Negative for injury, rash, and discoloration, Neuro: Negative for headache, weakness, numbness, tingling, and seizure, Psych: Negative for depression, anxiety, suicide ideation, homicidal ideation, and hallucinations, Allergy/Immunology: Negative for hives, rash, and allergies, Endocrine: Negative for neck swelling, polydipsia, polyuria, polyphagia, and marked weight changes, Hematologic/Lymphatic: Negative for swollen nodes, abnormal bleeding, and unusual bruising. 11:51 MS/extremity: Positive for decreased range of motion, pain, tenderness, of the left inguinal area and left hip. Exam: 11:51 Constitutional: This is a well developed, well nourished patient who is awake, alert, julissa and in no acute distress. Head/Face: Normocephalic, atraumatic. Eyes: Pupils equal round and reactive to light, extra-ocular motions intact. Lids and lashes normal. Conjunctiva and sclera are non-icteric and not injected. Cornea within normal limits. Periorbital areas with no swelling, redness, or edema. ENT: Nares patent. No nasal discharge, no septal abnormalities noted. Tympanic membranes are normal and external auditory canals are clear. Oropharynx with no redness, swelling, or masses, exudates, or evidence of obstruction, uvula midline. Mucous membranes moist. Neck: Trachea midline, no thyromegaly or masses palpated, and no cervical lymphadenopathy. Supple, full range of motion without nuchal rigidity, or vertebral point tenderness. No Meningismus. Chest/axilla: Normal chest wall appearance and motion. Nontender with no deformity. No lesions are appreciated. Cardiovascular: Regular rate and rhythm with a normal S1 and S2. No gallops, murmurs, or rubs. Normal PMI, no JVD. No pulse deficits. Respiratory: Lungs have equal breath sounds bilaterally, clear to auscultation and percussion. No rales, rhonchi or wheezes noted. No increased work of breathing, no retractions or nasal flaring. Abdomen/GI: Soft, non-tender, with normal bowel sounds. No distension or tympany. No guarding or rebound. No evidence of tenderness throughout. Back: No spinal tenderness. No costovertebral tenderness. Full range of motion. Skin: Warm, dry with normal turgor. Normal color with no rashes, no lesions, and no evidence of cellulitis. Neuro: Awake and alert, GCS 15, oriented to person, place, time, and situation. Cranial nerves II-XII grossly intact. Motor strength 5/5 in all extremities. Sensory grossly intact. Cerebellar exam normal. Normal gait. Psych: Awake, alert, with orientation to person, place and time. Behavior, mood, and affect are within normal limits. 11:51 Musculoskeletal/extremity: Extremities: grossly normal except: decreased ROM, pain, ROM: limited active range of motion due to pain, limited passive range of motion due to pain, Circulation is intact in all extremities. Sensation intact. Compartment Syndrome exam of affected extremity: is normal. DVT Exam: no pain, swelling, tenderness, positive Homans' sign noted on exam, bluish discoloration, erythema, increased warmth, that is mild, of the left femoral area and left hip. Vital Signs: 10:18 BP 157 / 81; Pulse 71; Resp 18; Temp 98.2; Pulse Ox 100% on R/A; Weight 109.32 kg; sg5 Height 5 ft. 4 in. (162.56 cm); Pain 5/10; 11:30 BP 142 / 58; Pulse 68; Resp 18; Temp 98.; Pulse Ox 99% on R/A; ph 12:30 BP 153 / 64; Pulse 68; Resp 18; Pulse Ox 99% on R/A; ph 10:18 Body Mass Index 41.37 (109.32 kg, 162.56 cm) sg5 Aurora Coma Score: 10:30 Eye Response: spontaneous(4). Verbal Response: oriented(5). Motor Response: obeys ph commands(6). Total: 15. 11:30 Eye Response: spontaneous(4). Verbal Response: oriented(5). Motor Response: obeys ph commands(6). Total: 15. 12:30 Eye Response: spontaneous(4). Verbal Response: oriented(5). Motor Response: obeys ph commands(6). Total: 15. Trauma Score (Adult): 10:30 Eye Response: spontaneous(1); Verbal Response: oriented(1); Motor Response: obeys ph commands(2); Systolic BP: > 89 mm Hg(4); Respiratory Rate: 10 to 29 per min(4); Vick Score: 15; Trauma Score: 12 11:30 Eye Response: spontaneous(1); Verbal Response: oriented(1); Motor Response: obeys ph commands(2); Systolic BP: > 89 mm Hg(4); Respiratory Rate: 10 to 29 per min(4); Aurora Score: 15; Trauma Score: 12 12:30 Eye Response: spontaneous(1); Verbal Response: oriented(1); Motor Response: obeys ph commands(2); Systolic BP: > 89 mm Hg(4); Respiratory Rate: 10 to 29 per min(4); Vick Score: 15; Trauma Score: 12 MDM: 10:13 Patient medically screened. [facility] 11:55 Differential diagnosis: contusion, fracture, multiple trauma, sprain, strain. Data [facility] reviewed: vital signs, nurses notes, radiologic studies, CT scan. Consideration of Admission/Observation Escalation of care including admission/observation considered. Independent interpretation of the following test(s) in the Emergency Department X-Ray: My interpretation is fx left pubic symphysis, left inferior ramus. Test considered but Not performed: Labs: no cbc , comp met. Care significantly affected by the following chronic conditions: Diabetes, Hypertension, Obesity. 11/26 10:35 Order name: CT Lumbar Spine Wo Con [facility] 11/26 10:35 Order name: Elbow Left 3 View XRAY [facility] 11/26 10:35 Order name: Pelvis XRAY [facility] 11/26 10:35 Order name: Hip Left 2 View XRAY [facility] 11/26 11:14 Order name: CT; Complete Time: 11:47 [facility]TX 11/26 11:23 Order name: RAD; Complete Time: 11:47 [facility]TX 11/26 10:35 Order name: Ice pack; Complete Time: 10:42 [facility] 11/26 11:25 Order name: RAD; Complete Time: 11:47 EDTX 11/26 11:26 Order name: RAD; Complete Time: 11:47 EDTX 11/26 11:51 Order name: Misc. Order: 4 point walker; Complete Time: 12:25 [facility] 11/26 12:09 Order name: Misc. Order: PHYSICAL THERAPY CONSULT; Complete Time: 12:25 [facility] Administered Medications: 12:25 Not Given (Other Intervention Used): Tylenol 650 mg PO once ph 12:25 Drug: HYDROcodone-acetaminophen 5 mg-325 mg 2 tabs Route: PO; ph 12:38 Follow up: Response: (VIS) Vaccine information sheet provided today. Questions and/or ph concerns addressed. VIS edition date: May 10, 2021.; No adverse reaction 12:25 Drug: Ketorolac 60 mg Route: IM; Site: right deltoid; ph 12:38 Follow up: Response: No adverse reaction ph Disposition Summary: 11/26/22 12:03 Discharge Ordered Location: Home julissa Problem: new julissa Symptoms: have improved julissa Condition: Stable julissa Diagnosis - Fracture of other parts of pelvis - nondisplaced fracture left pubic symphysisand julissa left inferior pubic ramus - Fall on same level, unspecified julissa - Contusion of left elbow julissa - Low back pain julissa Followup: julissa - With: Private Physician - When: 2 - 3 days - Reason: Recheck today's complaints, Continuance of care, Re-evaluation by your physician Followup: julissa - With: Sami Antonio MD - When: 2 - 3 days - Reason: Recheck today's complaints, Continuance of care, Re-evaluation by your physician Discharge Instructions: - Discharge Summary Sheet julissa - Fall Prevention in the Home, Adult julissa - Simple Pelvic Fracture, Adult julissa - Elbow Contusion julissa - Elbow Contusion, [id number] [facility] Forms: - Medication Reconciliation Form julissa - Thank You Letter julissa - Antibiotic Education julissa - Prescription Opioid Use [facility] Prescriptions: - Tylenol-Codeine #3 300 mg-30 mg Oral - take 2 tablet by ORAL route every 6 hours; 24 tablet; Refills: 0, Product julissa Selection Permitted Signatures: Dispatcher [employer] Florin Gage MD MD cha Hall, Patricia, RN RN Lor Miller RN RN sg5
[2022-11-26] MEDS ORDERED: KETOROLAC 30 MG/ML INJ ONE (12:17)
[2022-11-26] MEDS ORDERED: HYDROCODONE/APAP 5/325 MG TAB ONE (12:17)
[2022-11-26 13:08] VITALS: TEMP 98; O2SAT 99
[2022-11-26 13:09] VITALS: BP 153/64
== END 2022-11-26 12:55 | disposition home or self-care (01) ==
LOC: ER 10:09
DX: S32.89XA Fracture of other parts of pelvis, initial encounter for closed fracture (principal); S50.02XA Contusion of left elbow, initial encounter; M54.50 Low back pain, unspecified; W18.30XA Fall on same level, unspecified, initial encounter; E11.9 Type 2 diabetes mellitus without complications; I48.91 Unspecified atrial fibrillation; Z79.01 Long term (current) use of anticoagulants
CPT/HCPCS: 72131; 72170; 96372; 97163; 99284

== ENCOUNTER 2024-01-07 17:20 | Emergency (ER) | payer BC, OTHER ==
[2024-01-07] MEDS ORDERED: FAMOTIDINE 20 MG/2 ML VIAL IV ONE (18:26)
[2024-01-07] MEDS ORDERED: ONDANSETRON 4 MG/2 ML VIAL ONE (18:26)
[2024-01-07] MEDS ORDERED: NA CHLORIDE 0.9% 1,000 ML ONE (18:27)
[2024-01-07 18:47] LABS: Absolute Basophils 0.1 K/uL (0-0.5); Absolute Eosinophils 0.1 K/uL (0-0.5); Absolute Monocytes 1.1 K/uL (0.1-1.3); Basophils % 0.8 % (0-1.3); Eosinophils % 1.3 % (0-4.4); Hematocrit 36.5 % (36.0-45.0); Hemoglobin 11.8 g/dL (12.0-15.0); Lymphocytes % 21.5 % (15.3-44.8); MCH 26.6 pg (27.0-35.0); MCHC 32.4 g/dL (32.0-36.0); MPV 7.2 fL (7.6-11.3); Neutrophils % 64.4 % (41.7-73.7); Platelets 316 thou/uL (152-406); RBC Red Blood Cell Count 4.44 M/uL (3.86-4.86); Red Cell Distribution Width 15.1 % (12.1-15.2)
--- NOTE | 2024-01-07 18:53 | RAD REPORT ---
EXAM DESCRIPTION: RAD - Chest Single View - 01/07/2024 6:43 pm CLINICAL HISTORY: nausea/vomiting Chest pain. COMPARISON: Chest Single View dated 02/11/2020; Chest Pa And Lat (2 Views) dated 01/09/2016; CHEST SINGL E VIEW dated 12/12/2009; CHEST PA AND LAT 2 VIEW dated 12/01/2007 FINDINGS: Portable technique limits examination quality. Mild interstitial pulmonary edema. The heart is mildly enlarged in size. No displaced fractures. IMPRESSION: Mild CHF.
[2024-01-07 18:55] LABS: PT Prothrombin Time 26.1 SECONDS (9.5-12.5); Protime INR 2.44
[2024-01-07 19:14] LABS: Albumin 3.2 g/dL (3.4-5.0); Albumin/Globulin Ratio 0.9 (1.1-1.8); Anion Gap 11.1 mEq/L (5.0-15.0); Bilirubin Direct 0.2 mg/dL (0-0.2); Bilirubin Indirect, Calculated 0.2 mg/dL (0.2-0.8); Bilirubin Total 0.4 mg/dL (0.2-1.0); Globulin 3.7 g/dL (2.3-3.5); Magnesium 1.6 mg/dL (1.6-2.4); Potassium 3.1 mEq/L (3.5-5.1); Protein, Total 6.9 g/dL (6.4-8.2); Troponin High Sensitivity 10.5 pg/mL (<58.9)
--- NOTE | 2024-01-07 20:34 | RAD REPORT ---
EXAM DESCRIPTION: CTAbdomen Pelvis W Contrast - 01/07/2024 8:27 pm CLINICAL HISTORY: Abdominal pain. vomiting, diarrhea COMPARISON: No comparisons TECHNIQUE: Biphasic CT imaging of the abdomen and pelvis was performed with 100 ml non-ionic IV cont rast. All CT scans are performed using dose optimization technique as appropriate and may include automated exposure control or mA/KV adjustment according to patient size. FINDINGS: The lung bases are clear.Cholecystectomy. The liver, spleen, pancreas, left adrenal gland and kidneys are within normal limits. 23 mm right adr enal mass likely adenoma. No bowel obstruction, free air, free fluid or abscess. Sigmoid diverticulosis coli without diverticul itis. Nonvisualized appendix. No evidence of significant lymphadenopathy. Mild lumbar degenerative changes. IMPRESSION: No acute intra-abdominal or pelvic finding.
[2024-01-07] MEDS ORDERED: POTASSIUM 25 MEQ EFFERV TAB ONE (21:15)
--- NOTE | 2024-01-07 22:19 | EDPHYS ---
Physician Documentation [facility] Name: Sarita Kaur Age: 68 yrs Sex: Female : 1955 Arrival Date: 01/07/2024 Time: 17:20 Bed 13 Private MD: ED Physician Kevin Akbar HPI: 01/06 18:10 This 68 yrs old Female presents to ER via Ambulatory with complaints of cp Nausea/Vomiting/Diarrhea, Abdominal Pain. 18:10 The patient presents to the emergency department with nausea, that is moderate, cp vomiting, that is intermittent, abdominal pain, of the right upper quadrant and left upper quadrant. 18:10 Onset: The symptoms/episode began/occurred 2 week(s) ago. Possible causes: unknown. cp Associated signs and symptoms: Pertinent positives: anorexia, diarrhea, Pertinent negatives: fever, GI bleeding. Severity of symptoms: in the emergency department the symptoms are unchanged. Historical: - Allergies: 17:40 No Known Allergies; hb - Home Meds: 17:40 Eliquis 5 mg Oral tab [Active]; lisinopril-hydrochlorothiazide 20-25 mg Oral tab 1 tab hb once daily [Active]; Lyrica 150 mg Oral [Active]; metoprolol succinate 100 mg Oral Tb24 1 tab once daily [Active]; omeprazole 20 mg Oral cpDR [Active]; omeprazole 20 mg Oral cpDR [Active]; metformin 1 Oral tab [Active]; rosuvastatin 10 mg Oral tab 1 tab once daily [Active]; - PMHx: 17:40 Ablation; Atrial Fib; Depression; Diabetes - NIDDM; hb - Immunization history:: Adult Immunizations up to date. - Infectious Disease History:: Denies. - Social history:: Smoking status: Patient denies any tobacco usage or history of. ROS: 18:15 Constitutional: Negative for fever, cp 18:15 Abdomen/GI: Positive for abdominal pain, nausea and vomiting, cp Exam: 18:20 Constitutional: The patient appears in no acute distress, alert, awake, cp non-diaphoretic, non-toxic, well developed, well nourished, uncomfortable, 18:20 Head/Face: Normocephalic, atraumatic. cp 18:20 Eyes: Periorbital structures: appear normal, Conjunctiva: normal, no exudate, no injection, Sclera: no appreciated abnormality, Lids and lashes: appear normal, bilaterally, 18:20 ENT: External ear(s): are unremarkable, Nose: is normal, Mouth: Lips: moist, Oral mucosa: pink and intact, moist, Posterior pharynx: Airway: no evidence of obstruction, patent, 18:20 Chest/axilla: Inspection: normal, Palpation: is normal, no crepitus, no tenderness, 18:20 Cardiovascular: Rate: normal, Rhythm: regular, 18:20 Respiratory: the patient does not display signs of respiratory distress, Respirations: normal, no use of accessory muscles, no retractions, labored breathing, is not present, Breath sounds: are clear throughout, no decreased breath sounds, no stridor, no wheezing, 18:20 Abdomen/GI: Inspection: abdomen appears normal, Bowel sounds: active, all quadrants, Palpation: soft, in all quadrants, mild abdominal tenderness, in the epigastric area, right upper quadrant and left upper quadrant, 18:20 Back: CVA tenderness, is absent, 18:20 Neuro: Orientation: to person, place \T\ time. Mentation: is normal, Motor: moves all fours, strength is normal, Sensation: is normal, 19:07 ECG was reviewed by the Attending Physician. cp Vital Signs: 17:39 BP 202 / 86; Pulse 68; Resp 16; Temp 98(TE); Pulse Ox 99% on R/A; Weight 107.95 kg; hb Height 5 ft. 5 in. ; Pain 7/10; 18:44 BP 181 / 85; Pulse 59; Resp 16; Pulse Ox 99% ; bp 19:00 BP 171 / 81; Pulse 61; Resp 16; Pulse Ox 100% on R/A; jb4 20:00 BP 159 / 66; Pulse 58; Resp 16; Pulse Ox 98% on R/A; jb4 21:00 BP 167 / 74; Pulse 57; Resp 18; Pulse Ox 95% on R/A; jb4 22:00 BP 170 / 87; Pulse 62; Resp 16; Pulse Ox 96% on R/A; jb4 17:39 Body Mass Index 39.60 (107.95 kg, 165.1 cm) hb 17:39 Pain Scale: Adult hb MDM: 17:44 Patient medically screened. cp 22:17 Data reviewed: vital signs, nurses notes, lab test result(s), EKG, radiologic studies, cp CT scan. 22:17 Differential diagnosis: Nonspecific abd pain, gastritis, cholecystitis, pancreatitis, cp diverticulitis, viral gastroenteritis, gastroenteritis. I considered the following discharge prescriptions or medication management in the emergency department Medications were administered in the Emergency Department. See MAR. Special discussion: Based on the patient's Hx, exam, and Dx evaluation, there is no indication for emergent surgery or inpatient Tx. It is understood by the patient/guardian that if the Sx's persist or worsen they need to return immediately for re-evaluation. 22:17 Care significantly affected by the following chronic conditions: Diabetes. cp 22:17 Counseling: I had a detailed discussion with the patient and/or guardian regarding the cp historical points, exam findings, and any diagnostic results supporting the discharge/admit diagnosis, lab results, radiology results, the need for outpatient follow up, a bulk folder, to return to the emergency department if symptoms worsen or persist or if there are any questions or concerns that arise at home. 01/06 18:06 Order name: Basic Metabolic Panel; Complete Time: 19:53 cp 01/06 21:35 Interpretation: Normal except: NA 135; K 3.1; GFR 86. cp 01/06 18:06 Order name: CBC with Diff; Complete Time: 19:10 cp 01/06 22:19 Interpretation: Normal except: HGB 11.8; MCH 26.6; MPV 7.2. cp 01/06 18:06 Order name: LFT's; Complete Time: 19:53 cp 01/06 21:02 Interpretation: Normal except: AST 71; ALT 65; ALB 3.2; GLOB 3.7; A/G 0.9. cp 0404 18:06 Order name: Magnesium; Complete Time: 19:53 cp 01/06 18:06 Order name: NT PRO-BNP; Complete Time: 19:53 cp 01/06 18:06 Order name: PT-INR; Complete Time: 19:10 cp 01/06 18:06 Order name: Troponin HS; Complete Time: 19:53 cp 01/06 22:20 Interpretation: Troponin HS 10.5; Reviewed. cp 01/06 18:06 Order name: XRAY Chest (1 view); Complete Time: 19:10 cp 01/06 19:11 Interpretation: Report reviewed. cp 01/06 19:55 Order name: CT Abd/Pelvis - IV Contrast Only; Complete Time: 21:02 cp 01/06 18:06 Order name: Cardiac monitoring; Complete Time: 18:23 cp 01/06 18:06 Order name: EKG - Nurse/Tech; Complete Time: 19:03 cp 01/06 18:06 Order name: IV Saline Lock; Complete Time: 18:42 cp 01/06 18:06 Order name: Labs collected and sent; Complete Time: 18:42 cp 01/06 18:06 Order name: O2 Per Protocol; Complete Time: 18:23 cp 01/06 18:06 Order name: O2 Sat Monitoring; Complete Time: 18:22 cp EC:07 Rate is 61 beats/min. Rhythm is regular. IA interval is normal. QRS interval is normal. cp QT interval is normal. T waves are Inverted in lead aVR. Interpreted by me. Reviewed by me. Administered Medications: 18:42 Drug: Ondansetron IVP 4 mg IVP once; over 2 minutes Route: IVP; Site: right wrist; bp 18:42 Drug: Famotidine IVP 20 mg IVP once; dilute with 10 mL 0.9% NaCl; give over 2 minutes bp Route: IVP; Site: right wrist; 18:42 Drug: NS 0.9% IV 1000 ml IV at 999 ml/hr Per protocol; 1000 mL bolus Route: IV; Rate: bp 999 ml/hr; Site: right wrist; 20:00 Follow up: Response: No adverse reaction; IV Status: Completed infusion; IV Intake: jb4 1000ml 21:26 Drug: Potassium PO Effervescent Tablet 50 mEq PO once; dissolve in 4 ounces of water or jb4 juice Route: PO; 22:37 Follow up: Response: No adverse reaction 4 21:26 Drug: Potassium PO Effervescent Tablet 25 mEq PO once; dissolve in 4 ounces of water or jb4 juice Route: PO; 22:37 Follow up: Response: No adverse reaction 4 22:36 Drug: metoCLOPramide IVP 10 mg IVP once; over 1 to 2 minutes Route: IVP; Site: right jb4 forearm; 22:38 Follow up: Response: Medication administered at discharge. 4 22:37 Drug: hydrALAZINE IVP 10 mg IVP once; if systolic pressure >170 Route: IVP; Site: right jb4 forearm; 22:38 Follow up: Response: Medication administered at discharge. jb4 Disposition Summary: 01/07/24 22:18 Discharge Ordered Notes: Location: Home cp Problem: new cp Symptoms: have improved cp Condition: Stable cp Diagnosis - Nausea with vomiting, unspecified cp - Diarrhea, unspecified cp - Hypokalemia cp - Abdominal pain, unspecified cp Followup: cp - With: Priti Gutiérrez MD - When: 2 - 3 days - Reason: Recheck today's complaints Discharge Instructions: - Discharge Summary Sheet cp - Abdominal Pain, Adult cp - Diarrhea, Adult cp - Nausea and Vomiting, Adult cp - Hypokalemia cp Forms: - Medication Reconciliation Form cp - Thank You Letter cp - Antibiotic Education cp - Prescription Opioid Use cp - Patient Portal Instructions cp - Leadership Thank You Letter cp Prescriptions: - ondansetron 8 mg Oral Tablet,disintegrating - take 1 tablet ORAL route every 12 hours; 20 tablet; Refills: 0, Product cp Selection Permitted Signatures: Dispatcher [employer] EDMS Florin Gerardo PA PA cp Sury Morse, RN RN Mono Cruz, RN RN jb4 Kwaku Dunne, RN RN bp Corrections: (The following items were deleted from the chart) 18:07 18:07 BASIC METABOLIC PANEL+C.LAB.BRZ ordered. EDMS EDMS 18:07 18:07 CBC+H.LAB.BRZ ordered. EDMS EDMS 18:07 18:07 HEPATIC FUNCTION+C.LAB.BRZ ordered. EDMS EDMS 18:07 18:07 MAGNESIUM+C.LAB.BRZ ordered. EDMS EDMS 18:07 18:07 PROBNP+C.LAB.BRZ ordered. EDMS EDMS 18:07 18:07 PROTIME (+INR)+COAG.LAB.BRZ ordered. EDMS EDMS 18:07 18:07 Troponin High Sensitivity+C.LAB.BRZ ordered. EDMS EDMS 18:07 18:07 Chest Single View+RAD.RAD.BRZ ordered. EDMS EDMS
--- NOTE | 2024-01-07 22:19 | ER ---
Nurse's Notes [facility] Name: Sarita Kaur Age: 68 yrs Sex: Female : 1955 Arrival Date: 01/07/2024 Time: 17:20 Bed 13 Private MD: Diagnosis: Nausea with vomiting, unspecified;Diarrhea, unspecified;Hypokalemia;Abdominal pain, unspecified Presentation: 01/06 17:39 Chief complaint: N/V/D and upper abdominal pain x 2 weeks. Coronavirus screen: At this hb time, the client does not indicate any symptoms associated with coronavirus-19. Ebola Screen: No symptoms or risks identified at this time. Initial Sepsis Screen: Does the patient meet any 2 criteria? No. Patient's initial sepsis screen is negative. Does the patient have a suspected source of infection? No. Patient's initial sepsis screen is negative. Risk Assessment: Do you want to hurt yourself or someone else? Patient reports no desire to harm self or others. Onset of symptoms was December 24, 2023. 17:39 Method Of Arrival: Ambulatory hb 17:39 Acuity: HALEIGH 3 hb Triage Assessment: 17:40 General: Appears in no apparent distress. Behavior is calm, cooperative. Pain: Pain hb currently is 7 out of 10 on a pain scale. Neuro: Level of Consciousness is awake, alert, obeys commands, Oriented to person, place, time, situation. Cardiovascular: Patient's skin is warm and dry. Respiratory: Respiratory effort is even, unlabored, Respiratory pattern is regular, symmetrical. GI: Reports upper abdominal pain, diarrhea, nausea, vomiting. Historical: - Allergies: 17:40 No Known Allergies; hb - Home Meds: 17:40 Eliquis 5 mg Oral tab [Active]; lisinopril-hydrochlorothiazide 20-25 mg Oral tab 1 tab hb once daily [Active]; Lyrica 150 mg Oral [Active]; metoprolol succinate 100 mg Oral Tb24 1 tab once daily [Active]; omeprazole 20 mg Oral cpDR [Active]; omeprazole 20 mg Oral cpDR [Active]; metformin 1 Oral tab [Active]; rosuvastatin 10 mg Oral tab 1 tab once daily [Active]; - PMHx: 17:40 Ablation; Atrial Fib; Depression; Diabetes - NIDDM; hb - Immunization history:: Adult Immunizations up to date. - Infectious Disease History:: Denies. - Social history:: Smoking status: Patient denies any tobacco usage or history of. Screenin:44 [facility] ED Fall Risk Assessment (Adult) History of falling in the last 3 months, bp including since admission No falls in past 3 months (0 pts). Abuse screen: Denies threats or abuse. Denies injuries from another. Nutritional screening: No deficits noted. Tuberculosis screening: No symptoms or risk factors identified. Assessment: 17:30 General: SEE TRIAGE NOTE. bp 19:00 Reassessment: Patient appears in no apparent distress at this time. Patient and/or jb4 family updated on plan of care and expected duration. Pain level reassessed. Patient is alert, oriented x 3, equal unlabored respirations, skin warm/dry/pink. 20:00 Reassessment: Patient appears in no apparent distress at this time. Patient and/or jb4 family updated on plan of care and expected duration. Pain level reassessed. Patient is alert, oriented x 3, equal unlabored respirations, skin warm/dry/pink. 21:00 Reassessment: Patient appears in no apparent distress at this time. Patient and/or jb4 family updated on plan of care and expected duration. Pain level reassessed. Patient is alert, oriented x 3, equal unlabored respirations, skin warm/dry/pink. 22:00 Reassessment: Patient appears in no apparent distress at this time. Patient and/or jb4 family updated on plan of care and expected duration. Pain level reassessed. Patient is alert, oriented x 3, equal unlabored respirations, skin warm/dry/pink. Vital Signs: 17:39 BP 202 / 86; Pulse 68; Resp 16; Temp 98(TE); Pulse Ox 99% on R/A; Weight 107.95 kg; hb Height 5 ft. 5 in. ; Pain 7/10; 18:44 BP 181 / 85; Pulse 59; Resp 16; Pulse Ox 99% ; bp 19:00 BP 171 / 81; Pulse 61; Resp 16; Pulse Ox 100% on R/A; jb4 20:00 BP 159 / 66; Pulse 58; Resp 16; Pulse Ox 98% on R/A; jb4 21:00 BP 167 / 74; Pulse 57; Resp 18; Pulse Ox 95% on R/A; jb4 22:00 BP 170 / 87; Pulse 62; Resp 16; Pulse Ox 96% on R/A; jb4 17:39 Body Mass Index 39.60 (107.95 kg, 165.1 cm) hb 17:39 Pain Scale: Adult hb ED Course: 17:24 Patient arrived in ED. im 17:40 Triage completed. hb 17:42 Arm band placed on. hb 17:44 Florin Gerardo PA is PHCP. cp 17:44 Kevin Akbar MD is Attending Physician. cp 18:15 Kwaku Dunne, RN is Primary Nurse. bp 18:42 Inserted saline lock: 22 gauge in right wrist, using aseptic technique. Blood collected.bp 18:44 Patient has correct armband on for positive identification. bp 18:45 XRAY Chest (1 view) In Process Unspecified. EDMS 20:29 CT Abd/Pelvis - IV Contrast Only In Process Unspecified. EDMS 22:00 Provided Education on: discharge instructions. jb4 22:16 Primary Nurse role handed off by Kwaku Dunne, RN as6 22:18 Priti Gutiérrez MD is Referral Physician. cp 22:39 No provider procedures requiring assistance completed. IV discontinued, intact, jb4 bleeding controlled, No redness/swelling at site. Pressure dressing applied. Administered Medications: 18:42 Drug: Ondansetron IVP 4 mg IVP once; over 2 minutes Route: IVP; Site: right wrist; bp 18:42 Drug: Famotidine IVP 20 mg IVP once; dilute with 10 mL 0.9% NaCl; give over 2 minutes bp Route: IVP; Site: right wrist; 18:42 Drug: NS 0.9% IV 1000 ml IV at 999 ml/hr Per protocol; 1000 mL bolus Route: IV; Rate: bp 999 ml/hr; Site: right wrist; 20:00 Follow up: Response: No adverse reaction; IV Status: Completed infusion; IV Intake: jb4 1000ml 21:26 Drug: Potassium PO Effervescent Tablet 50 mEq PO once; dissolve in 4 ounces of water or jb4 juice Route: PO; 22:37 Follow up: Response: No adverse reaction jb4 21:26 Drug: Potassium PO Effervescent Tablet 25 mEq PO once; dissolve in 4 ounces of water or jb4 juice Route: PO; 22:37 Follow up: Response: No adverse reaction jb4 22:36 Drug: metoCLOPramide IVP 10 mg IVP once; over 1 to 2 minutes Route: IVP; Site: right jb4 forearm; 22:38 Follow up: Response: Medication administered at discharge. jb4 22:37 Drug: hydrALAZINE IVP 10 mg IVP once; if systolic pressure >170 Route: IVP; Site: right jb4 forearm; 22:38 Follow up: Response: Medication administered at discharge. jb4 Medication: 22:00 VIS not applicable for this client. jb4 Intake: 20:00 IV: 1000ml; Total: 1000ml. jb4 Outcome: 22:18 Discharge ordered by MD. cp 22:39 Discharged to home ambulatory, with family, jb4 22:39 Condition: stable 22:39 Discharge instructions given to patient, Instructed on discharge instructions, follow up and referral plans. medication usage, Demonstrated understanding of instructions, follow-up care, medications, Prescriptions given X 1, 22:39 Patient left the ED. jb4 Signatures: Dispatcher [employer] EDMS Florin Gerardo PA PA cp Baxter, Heather, RN RN Mono Calles RN RN jb4 Kwaku Dunne RN RN bp Jareth Amezcua, SUHAIL RN as6 Lawanda Cain
[2024-01-07] MEDS ORDERED: HYDRALAZINE HCL 20 MG/ML VIAL ONE (22:22)
[2024-01-07] MEDS ORDERED: METOCLOPRAMIDE 10 MG/2mL INJ ONE (22:22)
[2024-01-08 01:45] VITALS: TEMP 98
[2024-01-08 02:16] VITALS: BP 170/87; O2SAT 96
--- NOTE | 2024-01-08 11:54 | EKG ---
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
== END 2024-01-07 22:39 | disposition home or self-care (01) ==
LOC: ER 17:20
DX: E87.6 Hypokalemia (principal); R19.7 Diarrhea, unspecified; R10.10 Upper abdominal pain, unspecified; E11.9 Type 2 diabetes mellitus without complications; I48.91 Unspecified atrial fibrillation; Z79.01 Long term (current) use of anticoagulants
CPT/HCPCS: 93005; 85025; 80048; 36415; 83735; 85610; 80076; 84484; 83880; 74177; 71045; 99284; Q9967; J0360; J2765; J2405; J7030